=== PATIENT | female | born 1940 | race Caucasian/White ===

== ENCOUNTER 2017-11-01 16:34 | Emergency (ER) | payer MEDICARE ==
[2017-11-01 17:02] LABS: CLARITY,URINE TURBID; COLOR,URINE RED; GLUCOSE,URINE NEGATIVE (NEG); PROTEIN,URINE 100 mg/dL (NEG-TRACE)
[2017-11-01 17:07] LABS: SQUAMOUS EPITHELIAL CELL,UR FEW /LPF
[2017-11-01 17:08] LABS: BACTERIA,URINE FEW /HPF (0-FEW); RBC,URINE TNTC /HPF (0-2)
[2017-11-01 17:09] LABS: ADD MAN DIFF? NO
[2017-11-01 17:12] LABS: BASO # 0.1 x10^3/uL (0.0-0.2); BASO % 1 % (0-3); EOS # 0.2 x10^3/uL (0.0-0.7); EOS % 3 % (0-3); HEMATOCRIT 41.8 % (36.0-47.0); HEMOGLOBIN 14.3 g/dL (12.0-15.5); LYMPH # 2.2 x10^3/uL (1.0-4.8); LYMPH % 32 % (24-48); MEAN CORPUSCULAR HEMOGLOBIN 32 pg (25-35); MEAN CORPUSCULAR HGB CONC 34 g/dL (31-37); MEAN CORPUSCULAR VOLUME 95 fL (79-100); MONO # 0.7 x10^3/uL (0.0-1.1); MONO % 10 % (0-9); NEUT # 3.6 x10^3uL (1.8-7.7); NEUT % 54 % (31-73); PLATELET COUNT 121 x10^3/uL (140-400); RED BLOOD COUNT 4.42 x10^6/uL (3.50-5.40); RED CELL DISTRIBUTION WIDTH 14.8 % (11.5-14.5); WHITE BLOOD COUNT 6.8 x10^3/uL (4.0-11.0)
[2017-11-01 17:20] LABS: BARBITURATES NEG (NEG); BENZODIAZEPINES NEG (NEG); CANNABINOIDS NEG (NEG); COCAINE NEG (NEG); METHADONE NEG (NEG); OPIATES NEG (NEG); PHENCYCLIDINE NEG (NEG)
[2017-11-01 17:26] LABS: AMPHETAMINE/METHAMPHETAMINE NEG (NEG); ETHANOL, URINE NEG (NEG)
[2017-11-01 17:33] LABS: ETHANOL < 10 mg/dL (0-10)
[2017-11-01 17:45] LABS: ALBUMIN 3.7 g/dL (3.4-5.0); ALK PHOS 90 U/L (46-116); ALT (SGPT) 56 U/L (14-59); ANION GAP 9 (6-14); AST (SGOT) 29 U/L (15-37); BLOOD UREA NITROGEN 26 mg/dL (7-20); BUN/CREATININE RATIO 13 (6-20); CALCIUM 9.3 mg/dL (8.5-10.1); CARBON DIOXIDE 25 mmol/L (21-32); CHLORIDE 106 mmol/L (98-107); GFR 24.3; GLUCOSE 122 mg/dL (70-99); LIPASE 584 U/L (73-393); POTASSIUM 4.3 mmol/L (3.5-5.1); SODIUM 140 mmol/L (136-145); TOTAL BILIRUBIN 0.4 mg/dL (0.2-1.0); TOTAL PROTEIN 7.4 g/dL (6.4-8.2)
[2017-11-01 17:47] LABS: PARTIAL THROMBOPLASTIN TIME 62 SEC (24-38)
[2017-11-01 17:50] LABS: INR 7.4 (0.8-1.1)
[2017-11-01] MEDS: IV NORMAL SALINE 1000ML BAG 1,000 ML IV (18:07)
[2017-11-01] MEDS: PHYTONADIONE 10 MG/ML ORAL SOLUTION. PO (18:19)
== END 2017-11-01 18:31 | disposition home or self-care (01) ==
LOC: ER 16:34
DX: N18.9 Chronic kidney disease, unspecified (principal); R74.8 Abnormal levels of other serum enzymes; R79.1 Abnormal coagulation profile; Z88.2 Allergy status to sulfonamides; Z88.5 Allergy status to narcotic agent
CPT/HCPCS: 36415; 80053; 80307; 81001; 83690; 85025; 85610; 85730; 99284; G0480; J7030

== ENCOUNTER 2019-07-25 10:04 | Emergency (ER) | payer MEDICARE ==
[~2019-07-25] VITALS: Ht 165.1 cm; Wt 122.0 kg
[~2019-07-25 10:04] MED LIST: CRESTOR20 MG PO; LEVO175T5 PO; LOSA100T14 PO; METO50TA6 PO; MULT1TAB52 PO; POTA20TA4 PO; WARF-31 PO
[2019-07-25] MEDS ORDERED: OXYMETAZOLINE 0.05% NASAL SPRAY 30ML BOTTLE. NS ONE (11:15)
[2019-07-25 11:35] LABS: BASO # 0.1 x10^3/uL (0.0-0.2); BASO % 1 % (0-3); EOS # 0.2 x10^3/uL (0.0-0.7); EOS % 3 % (0-3); HEMATOCRIT 42.4 % (36.0-47.0); HEMOGLOBIN 14.1 g/dL (12.0-15.5); LYMPH # 1.1 x10^3/uL (1.0-4.8); LYMPH % 18 % (24-48); MEAN CORPUSCULAR HEMOGLOBIN 31 pg (25-35); MEAN CORPUSCULAR HGB CONC 33 g/dL (31-37); MEAN CORPUSCULAR VOLUME 93 fL (79-100); MONO # 0.6 x10^3/uL (0.0-1.1); MONO % 10 % (0-9); NEUT # 4.1 x10^3/uL (1.8-7.7); NEUT % 69 % (31-73); PLATELET COUNT 127 x10^3/uL (140-400); RED BLOOD COUNT 4.55 x10^6/uL (3.50-5.40); RED CELL DISTRIBUTION WIDTH 13.5 % (11.5-14.5)
[2019-07-25 11:40] LABS: CREATININE 1.6 mg/dL (0.6-1.0); GFR 31.3; POTASSIUM 3.9 mmol/L (3.5-5.1)
--- NOTE | 2019-07-25 11:40 | PHYS DOC ---
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 Patient complaining of right-sided nosebleed since this morning that did not resolve with local pressure. Patient denies chest pain, shortness of breath, dizziness, palpitation, other bleeding but he states she has history of abnormal bleeding related to Coumadin toxicity 1 year ago. Patient states the last time she had INR checked was 3 or 4 months ago. Review of Systems: Review of Systems: Constitutional: Denies fever or chills. [] Eyes: Denies change in visual acuity. [] HENT: Denies nasal congestion or sore throat, reports nosebleed. [] Respiratory: Denies cough or shortness of breath. [] Cardiovascular: Denies chest pain or edema. [] GI: Denies abdominal pain, nausea, vomiting, bloody stools or diarrhea. [] : Denies dysuria. [] Musculoskeletal: Denies back pain or joint pain. [] Integument: Denies rash. [] Neurologic: Denies headache, focal weakness or sensory changes. [] Endocrine: Denies polyuria or polydipsia. [] Lymphatic: Denies swollen glands. [] Psychiatric: Denies depression or anxiety. [] Heart Score: Risk Factors: Risk Factors: DM, Current or recent (<one month) smoker, HTN, HLP, family history of CAD, obesity. Risk Scores: Score 0 - 3: 2.5% MACE over next 6 weeks - Discharge Home Score 4 - 6: 20.3% MACE over next 6 weeks - Admit for Clinical Observation Score 7 - 10: 72.7% MACE over next 6 weeks - Early Invasive Strategies Current Medications: Current Medications Medications (Trade) Dose Ordered Sig/Lalito Start Time Stop Time Status Last Admin Dose Admin Oxymetazoline HCl (Afrin) 2 spray 1X ONCE 07/25/19 11:15 07/25/19 11:16 DC 07/25/19 11:16 2 SPRAY Allergies: Allergies: Allergies Coded Allergies Type Severity Reaction Last Updated Verified Sulfa (Sulfonamide Antibiotics) Allergy Intermediate 10/03/15 Yes diphenhydramine Allergy Intermediate sweating 10/03/15 Yes Physical Exam: PE: Constitutional: Well developed, well nourished, mild distress, non-toxic appearance. [] HENT: Normocephalic, atraumatic, bilateral external ears normal, oropharynx m oist, right nosebleed bleeding that was stopped with pressure with the clips applied in the ER clips in ER Eyes: PERRLA, EOMI, conjunctiva normal, no discharge. [] Neck: Normal range of motion, no tenderness, supple, no stridor. [] Cardiovascular:Heart rate regular rhythm, no murmur [] Lungs & Thorax: Bilateral breath sounds clear to auscultation [ [] Skin: Warm, dry, no erythema, no rash. [] Extremities: No tenderness, no cyanosis, no clubbing, ROM intact, no edema. [] Neurologic: Alert and oriented X 3, normal motor function, normal sensory function, no focal deficits noted. [] Psychologic: Affect normal, judgement normal, mood normal. [] Current Patient Data: Vital Signs: Vital Signs Date Time Temp Pulse Resp B/P (MAP) Pulse Ox O2 Delivery O2 Flow Rate FiO2 07/25/19 10:27 97.8 98 20 168/85 (112) 98 Room Air 97.8 EKG: EKG: [] Radiology/Procedures: Radiology/Procedures: [] Course & Med Decision Making: Course & Med Decision Making Pertinent Labs reviewed. (See chart for details) Evaluation of patient inertial 78-year-old female patient on Coumadin with complaining of nosebleed since this morning. Patient had INR of 3.0. Nosebleed controlled with applying Afrin and local pressure. Patient was advised to hold on INR tonight and resume tomorrow. Patient also states she takes all of her 3 blood pressure medication at night and was advised to space out her medication between morning and lunch and dinner. I've spoken with the patient and/or caregivers. I've explained the patient's condition, diagnosis and treatment plan based on information available to me at this time. I've answered the patient's and/or caregivers questions and addressed any concerns. The patient and/or caregivers have a good understanding the patient's diagnosis, condition and treatment plan as can be expected at this point. Vital signs have been stabilized. The patient's condition is stable for discharge from the emergency department. The patient will pursue further outpatient evaluation with her primary care provider or other designated consulting physician as outlined in the discharge instructions. Patient and/or caregivers are agreeable to this plan of care and follow-up instructions have been explained in detail. The patient and/or caregivers have received these instructions in written format and expressed understanding of these discharge instructions. The patient and her caregivers are aware that if any significant change in condition or worsening of symptoms should prompt him to immediately return to this of the closest emergency department. If an emergent department is not readily available I would encourage him to call 911. Jay Disclaimer: Jay Disclaimer: This electronic medical record was generated, in whole or in part, using a voice recognition dictation system. Departure Departure Impression: Primary Impression: Epistaxis Additional Impressions: Anticoagulated on Coumadin Chronic renal insufficiency Qualified Codes: N18.9 - Chronic kidney disease, unspecified Disposition: HOME, SELF-CARE (At 1245) Condition: IMPROVED Referrals: Erma NGUYEN MD (PCP) Patient Instructions: Nosebleed, Warfarin Coagulopathy, Warfarin, Questions and Answers Additional Instructions: Do not take your Coumadin tonight, start taking your Coumadin tomorrow as instructed Follow-up with your primary care physician in 3-5 days Return to ER if not getting better Do not touch or blow your nose Space out your blood pressure medication, take Amlodipine in the morning, Losartan at the lunch and Metoprolol at nighttime May use dispensed nose spray of Afrin 2 scores in each nostril up to 4 times a day as needed for nosebleed Thank you for visiting [facility]. We appreciate you trusting us with your care. If any additional problems come up don't hesitate to return to visit us. Please follow up with your primary care provider so they can plan add itional care if needed and know about the problem that you had. If symptoms worsen come back to the Emergency Department. Any concerning symptoms that start such as chest pain, shortness of air, weakness or numbness on one side of the body, running high fevers or any other concerning symptoms return to the ER. MARAL HERNÁNDEZ MD Jul 25, 2019 11:40
[2019-07-25 11:46] LABS: ALBUMIN 3.4 g/dL (3.4-5.0); ALBUMIN/GLOBULIN RATIO 0.9 (1.0-1.7); TOTAL BILIRUBIN 0.5 mg/dL (0.2-1.0); TOTAL PROTEIN 7.1 g/dL (6.4-8.2)
[2019-07-25 12:04] LABS: PROTHROMBIN TIME PATIENT 31.5 SEC (11.7-14.0)
[2019-07-25 13:00] VITALS: BP 122/76
== END 2019-07-25 13:05 | disposition home or self-care (01) ==
LOC: ER 10:04
DX: R04.0 Epistaxis (principal); N18.9 Chronic kidney disease, unspecified; E78.00 Pure hypercholesterolemia, unspecified; I10 Essential (primary) hypertension; D68.8 Other specified coagulation defects; I12.9 Hypertensive chronic kidney disease with stage 1 through stage 4 chronic kidney disease, or unspecified chronic kidney disease; Z85.3 Personal history of malignant neoplasm of breast; Z90.49 Acquired absence of other specified parts of digestive tract; Z87.891 Personal history of nicotine dependence; Z98.890 Other specified postprocedural states; Z88.2 Allergy status to sulfonamides; Z88.6 Allergy status to analgesic agent; Z86.718 Personal history of other venous thrombosis and embolism; Z86.711 Personal history of pulmonary embolism
CPT/HCPCS: 36415; 80053; 85025; 85610; 99285